=== PATIENT | male | born 1955 | race Caucasian/White ===

== ENCOUNTER 2016-02-10 19:09 | Inpatient (IN) ==
--- NOTE | 2016-02-10 20:48 | ED.PDOC ---
General ED Provider: Dr. EMY STEPHENS Chief Complaint: Diabetes Stated Complaint: My sugars are high lately, went to my doctor she started me on Insulin pen, they are still high, now hurting in the belly Time Seen by Physician: 20:47 Mode of Arrival: Walk-In Information Source: Patient Primary Care Provider: JAN BHAKTA Nursing and Triage Documentation Reviewed and Agree: Yes Endocrine Complaint Exam - Diabetic Complication Complaint/Exam Symptoms Are: Still present Timing: Constant Initial Severity: Moderate Current Severity: Moderate Character: Alert Aggravating: Reports: Medication change, Recent illness, Change in activity level Alleviating: Reports: None Associated Signs and Symptoms: Reports: Polydipsia, Polyuria, Abdominal pain. Denies: Decreased LOC, Polyphagia, Weight loss, Nausea, Vomiting, Fever, Diaphoresis, Fruity breath Cardiac Risk Factors: Reports: DM, Hypertension, Elevated lipids CVA Risk Factors: Reports: DM, Hypertension Serious Bacterial Infection Risk Factors: Reports: None Related Surgical History: Reports: None Acetone on Breath: No Dry Mucous Membranes: Yes Kussmaul Respirations: No Meningeal Signs: No Focal Weakness: None Focal Sensory Loss: None Gait: Normal Nystagmus Present: No Gag Reflex Present: Yes Finger to Nose: Normal Romberg Test Positive: No Babinski Sign: Negative Right, Negative Left Heel to Toe Normal: No Differential Diagnoses: Diabetic Ketoacidosis, Hyperosmolar State, Sepsis Review of Systems - Review Of Systems Constitutional: Reports: Malaise, Weakness Eyes: Reports: No symptoms Ears, Nose, Mouth, Throat: Reports: No symptoms Respiratory: Reports: No symptoms Cardiac: Reports: No symptoms GI: Reports: Abdominal pain : Reports: No symptoms Musculoskeletal: Reports: No symptoms Skin: Reports: No symptoms Neurological: Reports: No symptoms Endocrine: Reports: No symptoms Hematologic/Lymphatic: Reports: No symptoms All Other Systems: Reviewed and Negative Past Medical History - Past Medical History Previously Healthy: Yes Endocrine: Reports: DM 2, Hypothyroid, Dyslipidemia Cardiovascular: Reports: Hypertension Respiratory: Reports: None Hematological: Reports: None Gastrointestinal: Reports: GERD Genitourinary: Reports: None Neuro/Psych: Reports: TIA, Anxiety Musculoskeletal: Reports: Arthritis Cancer: Reports: None - Surgical History General Surgical History: Reports: Cholecystectomy, Back Surgery - Family History Family History: Reports: Unknown - Social History Smoking Status: Former smoker Hx Substance Use: No Alcohol Screening: None Physical Exam - Physical Exam Appearance: Ill-appearing, Obese Ill-appearing: Moderate Eyes: Conjunctiva clear ENT: Ears normal, Nose normal, Oropharynx normal Respiratory: Airway patent, Breath sounds clear, Breath sounds equal, Respirations nonlabored Cardiovascular: RRR, Pulses normal, No rub, No murmur GI/: Tender Musculoskeletal: Normal strength, ROM intact, No edema, No calf tenderness Skin: Warm, Dry, Normal color Neurological: Sensation intact, Motor intact, Reflexes intact, Cranial nerves intact, Alert, Oriented Psychiatric: Affect appropriate, Mood appropriate Interpretation - Radiology Interpretation Radiology Interpretation By: Radiologist Radiology Results: Negative Exam Interpreted: CT Scan Critical Care Note - Critical Care Note Total Time (mins): 0 Course - Course Hematology/Chemistry: 02/10/16 20:50 02/10/16 20:50 Orders, Labs, Meds: Lab Review 02/10/16 02/10/16 02/10/16 20:50 21:46 21:50 WBC 8.65 RBC 5.63 Hgb 15.4 Hct 43.9 MCV 78.0 L MCH 27.4 MCHC 35.1 RDW Coeff of Niurka 12.5 Plt Count 238 Immature Gran % (Auto) 0.2 Neut % (Auto) 72.1 Lymph % (Auto) 17.7 Hemphill % (Auto) 7.3 Eos % (Auto) 2.0 Baso % (Auto) 0.7 Immature Gran # (Auto) 0.0 Neut # 6.2 Lymph # 1.5 Hemphill # 0.6 Eos # 0.2 Baso # 0.1 D-Dimer 0.62 Puncture Site Lb O2 Saturation 89.0 L ABG pH 7.436 ABG pCO2 44.4 ABG pO2 55.0 L* ABG HCO3 29.9 H ABG Total CO2 31 H ABG Base Excess 6 H Evan Test + FiO2 % 21.0 Sodium 128 L Potassium 3.5 Chloride 86 L Carbon Dioxide 29 Anion Gap 16.5 BUN 25 H Creatinine 2.01 H Estimated GFR (MDRD) 34.00 BUN/Creatinine Ratio 12.43 Glucose 776 H* Calcium 9.3 Total Bilirubin 0.75 AST 23 ALT 49 Alkaline Phosphatase 160 H Total Creatine Kinase 52 Troponin I < 0.0100 Total Protein 7.5 Albumin 4.0 Globulin 3.5 Albumin/Globulin Ratio 1.14 Urine Color Urine Clarity Urine pH Ur Specific [place] Urine Protein Urine Glucose (UA) Urine Ketones Urine Blood Urine Nitrite Urine Bilirubin Urine Urobilinogen Ur Leukocyte Esterase Acetone, Qual Small 02/10/16 23:21 WBC RBC Hgb Hct MCV MCH MCHC RDW Coeff of Niurka Plt Count Immature Gran % (Auto) Neut % (Auto) Lymph % (Auto) Hemphill % (Auto) Eos % (Auto) Baso % (Auto) Immature Gran # (Auto) Neut # Lymph # Hemphill # Eos # Baso # D-Dimer Puncture Site O2 Saturation ABG pH ABG pCO2 ABG pO2 ABG HCO3 ABG Total CO2 ABG Base Excess Evan Test FiO2 % Sodium Potassium Chloride Carbon Dioxide Anion Gap BUN Creatinine Estimated GFR (MDRD) BUN/Creatinine Ratio Glucose Calcium Total Bilirubin AST ALT Alkaline Phosphatase Total Creatine Kinase Troponin I Total Protein Albumin Globulin Albumin/Globulin Ratio Urine Color Yellow Urine Clarity Clear Urine pH 5.5 Ur Specific [place] <=1.005 Urine Protein Negative Urine Glucose (UA) 2+ Urine Ketones 1+ Urine Blood Negative Urine Nitrite Negative Urine Bilirubin Negative Urine Urobilinogen 0.2 Ur Leukocyte Esterase Negative Acetone, Qual Orders Category Date Time Status ABG DRAW REQUEST Stat CARDIO 02/10/16 21:47 Completed EKG-(ED ONLY) Stat CARDIO 02/10/16 20:50 Completed BLOOD GLUCOSE MONITORING Q1HR CARE 02/10/16 21:48 Active ED IV/MEDIPORT/POWERPORT .ONCE EMERGENCY 02/10/16 21:46 Active Glucose [ED ACCUCHECK ASSESSMENT] .ONCE EMERGENCY 02/10/16 20:44 Active ABG Stat LAB 02/10/16 21:46 Completed ACETONE, QUALITATIVE Stat LAB 02/10/16 21:50 Completed CBC W/ AUTO DIFF Stat LAB 02/10/16 20:50 Completed COMPREHENSIVE METABOLIC PANEL Stat LAB 02/10/16 20:50 Completed CREATINE KINASE Stat LAB 02/10/16 20:50 Completed D-DIMER Stat LAB 02/10/16 20:50 Completed TROPONIN I Stat LAB 02/10/16 20:50 Completed URINALYSIS C & S IF INDICATED Stat LAB 02/10/16 23:21 Completed 0.9 % Sodium Chloride [Saline Flush] MEDS 02/10/16 21:46 Ordered 1 syr IVF PRN PRN Insulin Regular, Human [Humulin R] MEDS 02/10/16 21:48 Discontinued 15 unit IVP ONCE STA Sodium Chloride 0.9% [Sodium Chloride] 500 ml MEDS 02/10/16 21:46 Active IV 100 mls/hr CT ABDOMEN/PELVIS WO CONTRAST Stat RADS 02/10/16 20:43 Completed CXR [CHEST, 1V AP ONLY] Stat RADS 02/10/16 22:21 Taken Medications Generic Name Dose Route Start Last Admin Trade Name Freq PRN Reason Stop Dose Admin Sodium Chloride 500 mls @ 100 mls/hr 02/10/16 21:46 02/10/16 22:22 Sodium Chloride IV 02/11/16 02:45 100 mls/hr .Q5H STA Administration Sodium Chloride 1 syr 02/10/16 21:46 Saline Flush IVF PRN PRN To flush IV Discontinued Medications Generic Name Dose Route Start Last Admin Trade Name Freq PRN Reason Stop Dose Admin Insulin Human Regular 15 unit 02/10/16 21:48 02/10/16 22:17 Humulin R IVP 02/10/16 21:49 15 unit ONCE STA Administration Vital Signs: Temp Pulse Resp BP Pulse Ox 02/10/16 19:09 98.5 F 90 20 133/87 94 L Departure - Departure Time of Disposition: 23:55 Disposition: ADMITTED INPATIENT Discharge Problem: Diabetic ketoacidosis Qualifiers: Diabetes mellitus type: type 2 Diabetes mellitus complication detail: without coma Qualifier Code: (E13.10) Other specified diabetes mellitus with ketoacidosis without coma Instructions: Hyperglycemia, Non-Diabetic (ED) Condition: Stable Pt referred to PMD for follow-up: Yes Allergies/Adverse Reactions: Allergies rofecoxib [From Vioxx] Adverse Reaction (Verified 02/10/16 19:14) Home Medications: Ambulatory Orders Alprazolam [Alprazolam] 1 mg PO DAILY 01/24/15 Hydrochlorothiazide 25 mg PO DAILY 01/24/15 Levothyroxine Sodium [Synthroid] 50 mcg PO QDAC 01/24/15 Metoprolol Tartrate [Metoprolol Tartrate] 50 mg PO DAILY 01/24/15 Morphine Sulfate 30 mg PO BID 01/24/15 Sitagliptin Phosphate [Januvia] 100 mg PO DAILY 01/24/15 Disposition Discussed With: Patient, Family
[2016-02-10 20:59] LABS: BASOPHILS # (AUTO) 0.1 K/uL (0-0.2); BASOPHILS % (AUTO) 0.7 % (0.0-3.0); EOSINOPHILS # (AUTO) 0.2 K/ul (0.0-0.7); HEMATOCRIT 43.9 % (42.0-52.0); HEMOGLOBIN 15.4 g/dl (14.0-18.0); IMMATURE GRANULOCYTE % (AUTO) 0.2 % (0.0-5.0); LYMPHOCYTES # (AUTO) 1.5 K/uL (0.60-3.4); LYMPHOCYTES % (AUTO) 17.7 (10.0-50.0); MEAN CORPUSCULAR HEMOGLOBIN 27.4 pg (27.0-31.0); MEAN CORPUSCULAR HGB CONC 35.1 (31.8-35.4); MONOCYTES # (AUTO) 0.6 K/uL (0.4-2.0); MONOCYTES % (AUTO) 7.3 (0-10); NEUTROPHILS # (AUTO) 6.2 K/ul (2.0-6.9); NEUTROPHILS % (AUTO) 72.1; PLATELET COUNT 238 10^3/uL (140-440); RED BLOOD COUNT 5.63 10^6/ul (4.70-6.10); WHITE BLOOD COUNT 8.65 K/ul (4.2-10.2)
[2016-02-10 21:26] LABS: ALANINE AMINOTRANSFERASE 49 U/L (12-78); ALBUMIN/GLOBULIN RATIO 1.14; ALKALINE PHOSPHATASE 160 U/L (50-136); ANION GAP 16.5; ASPARTATE AMINO TRANSFERASE 23 U/L (15-37); BILIRUBIN,TOTAL 0.75 mg/dL (0.00-1.20); BLOOD UREA NITROGEN 25 mg/dL (7-18); BUN/CREATININE RATIO 12.43; CALCIUM 9.3 mg/dL (8.2-10.2); CARBON DIOXIDE 29 mmol/L (21-32); CHLORIDE 86 mmol/L (98-107); CREATINE KINASE 52 U/L; CREATININE 2.01 mg/dL (0.60-1.10); POTASSIUM 3.5 mmol/L (3.5-5.1); SODIUM 128 mmol/L (136-145); TOTAL PROTEIN 7.5 g/dL (6.4-8.2)
[2016-02-10] MEDS ORDERED: SODIUM CHLORIDE 500 ML IV STA (21:46)
[2016-02-10] MEDS ORDERED: HUMULIN R IVP STA (21:48)
[2016-02-10 21:55] LABS: GLUCOSE 776 mg/dL (70-100)
[2016-02-10 22:10] LABS: ABG PCO2 44.4 mmHg (35-45); ABG PH 7.436 (7.35-7.45)
[2016-02-10 22:11] LABS: ABG BASE EXCESS 6 (-2.0-2.0); ABG HCO3 29.9 (22.0-26.0); ABG TCO2 31 (22.0-28.0)
--- NOTE | 2016-02-10 22:20 | CT ---
EXAM: CT abdomen pelvis without intravenous contrast 02/10/2016. Sagittal and coronal reformatted images obtained. HISTORY: Abdominal pain COMPARISON: 01/24/2015 FINDINGS: The liver shows no acute abnormality. Gallbladder has been removed. The adrenal glands and kidneys show no acute abnormality. The spleen and pancreas show no acute abnormality. There is no bowel obstruction. Unremarkable urinary bladder. No free air or free fluid. Normal appendix. Posterior fusion of L4-S1. No acute osseous abnormality. Chronic osteoarthritic degenerative tracy e of the left hip. IMPRESSION: 1. Status post cholecystectomy. 2. No urinary or bowel obstruction and normal appendix. 3. No acute inflammatory process identified within the abdomen or pelvis within the limitation of a noncontrast enhanced examination.
[2016-02-10 23:30] LABS: BILIRUBIN,URINE Negative (NEGATIVE); KETONES,URINE 1+ (NEGATIVE); LEUKOCYTE ESTERASE ,URINE Negative (NEGATIVE); NITRITE,URINE Negative (NEGATIVE); PH,URINE 5.5 (5-9); PROTEIN,URINE Negative (NEGATIVE); URINE, BLOOD Negative (NEGATIVE)
[2016-02-10 23:32] LABS: ADD URINE MICROSCOPIC NO
[2016-02-10] MEDS ORDERED: SODIUM CHLORIDE 1,000 ML IV SCH (23:45)
[2016-02-10] MEDS ORDERED: TYLENOL PO PRN (23:56)
[2016-02-11] MEDS ORDERED: HUMULIN R 100 UNIT in SODIUM CHLORIDE 100 ML IV SCH (00:15)
[2016-02-11] MEDS ORDERED: HUMULIN R ONE ×2 (01:48→10:26)
[2016-02-11] MEDS ORDERED: SODIUM CHLORIDE 100 ML IV ONE (02:00)
[2016-02-11 02:53] VITALS: BMI 31.7
[2016-02-11] MEDS: SYNTHROID PO SCH (05:50)
[2016-02-11 06:11] LABS: BASOPHILS # (AUTO) 0.1 K/uL (0-0.2); BASOPHILS % (AUTO) 0.8 % (0.0-3.0); EOSINOPHILS # (AUTO) 0.4 K/ul (0.0-0.7); EOSINOPHILS % (AUTO) 3.6 % (0.0-7.0); HEMATOCRIT 47.2 % (42.0-52.0); HEMOGLOBIN 16.4 g/dl (14.0-18.0); IMMATURE GRANULOCYTE % (AUTO) 0.3 % (0.0-5.0); LYMPHOCYTES # (AUTO) 2.5 K/uL (0.60-3.4); LYMPHOCYTES % (AUTO) 24.9 (10.0-50.0); MEAN CORPUSCULAR HEMOGLOBIN 27.2 pg (27.0-31.0); MEAN CORPUSCULAR HGB CONC 34.7 (31.8-35.4); MEAN CORPUSCULAR VOLUME 78.4 fl (80.0-94.0); MONOCYTES # (AUTO) 0.8 K/uL (0.4-2.0); MONOCYTES % (AUTO) 8.4 (0-10); NEUTROPHILS # (AUTO) 6.1 K/ul (2.0-6.9); PLATELET COUNT 263 10^3/uL (140-440); RED BLOOD COUNT 6.02 10^6/ul (4.70-6.10); WHITE BLOOD COUNT 9.91 K/ul (4.2-10.2)
[2016-02-11 06:58] LABS: ALANINE AMINOTRANSFERASE 47 U/L (12-78); ALBUMIN/GLOBULIN RATIO 1.05; ALKALINE PHOSPHATASE 135 U/L (50-136); ANION GAP 11.6; ASPARTATE AMINO TRANSFERASE 26 U/L (15-37); BILIRUBIN,TOTAL 0.52 mg/dL (0.00-1.20); BLOOD UREA NITROGEN 22 mg/dL (7-18); BUN/CREATININE RATIO 13.66; CALCIUM 9.9 mg/dL (8.2-10.2); CARBON DIOXIDE 36 mmol/L (21-32); CHLORIDE 92 mmol/L (98-107); CREATINE KINASE 58 U/L; CREATININE 1.61 mg/dL (0.60-1.10); GLUCOSE 246 mg/dL (70-100); SODIUM 137 mmol/L (136-145); TOTAL PROTEIN 7.8 g/dL (6.4-8.2)
[2016-02-11 07:07] LABS: POTASSIUM 2.6 mmol/L (3.5-5.1)
--- NOTE | 2016-02-11 07:35 | DI ---
EXAM: Chest one view, frontal view only. HISTORY: Cough. COMPARISON: 03/27/2012. FINDINGS: The heart size is normal. There is no pulmonary vascular congestion. The lungs are jose r save for calcified granulomatous changes. No pleural effusion or pneumothorax is seen. No acute osseous abnormality identified. Thoracic spinal cord stimulator noted. Suspect old left humeral fr acture. Since the prior study, there has been no significant interval change. IMPRESSION: No acute cardiopulmonary process.
[2016-02-11] MEDS ORDERED: K-DUR PO STA (08:13)
[2016-02-11] MEDS: MORPHINE SULFATE TAB PO SCH ×2 (08:26→21:56)
[2016-02-11] MEDS: LOPRESSOR PO SCH (08:26)
[2016-02-11] MEDS: LOVENOX SUBCUT SCH (08:26)
[2016-02-11] MEDS ORDERED: D5%-NS-KCL 20 MEQ/L IV SOL 1,000 ML IV SCH (08:30)
[2016-02-11] MEDS ORDERED: NON-FORMULARY MEDICATION (Alprazolam [Alprazolam] 1 MG) PO SCH ×22 (09:00)
[2016-02-11] MEDS ORDERED: MORPHINE SULFATE 30 MG PO SCH (09:00)
[2016-02-11 10:43] LABS: ABG PCO2 44.8 mmHg (35-45)
[2016-02-11 10:45] LABS: ABG BASE EXCESS 5 (-2.0-2.0); ABG HCO3 29.7 (22.0-26.0); ABG TCO2 31 (22.0-28.0)
[2016-02-11] MEDS: POTASSIUM CHLORIDE 20 MEQ VIAL-ADDITIVE ONLY 20 MEQ in SODIUM CHLORIDE 1,000 ML IV SCH ×2 (11:07→21:07)
[2016-02-11] MEDS: JANUVIA PO SCH (11:08)
[2016-02-11] MEDS: HUMULIN R SUBCUT PRN ×7 (12:22→22:14)
[2016-02-11] MEDS: XANAX PO SCH (13:07)
[2016-02-11 14:37] LABS: TROPONIN I 0.014 ng/ml (0.0000-0.4000)
[2016-02-12 05:50] LABS: BASOPHILS # (AUTO) 0.1 K/uL (0-0.2); EOSINOPHILS # (AUTO) 0.3 K/ul (0.0-0.7); EOSINOPHILS % (AUTO) 4.8 % (0.0-7.0); HEMATOCRIT 41.1 % (42.0-52.0); HEMOGLOBIN 13.9 g/dl (14.0-18.0); IMMATURE GRANULOCYTE % (AUTO) 0.3 % (0.0-5.0); LYMPHOCYTES # (AUTO) 1.7 K/uL (0.60-3.4); LYMPHOCYTES % (AUTO) 27.4 (10.0-50.0); MEAN CORPUSCULAR HGB CONC 33.8 (31.8-35.4); MONOCYTES # (AUTO) 0.6 K/uL (0.4-2.0); NEUTROPHILS # (AUTO) 3.4 K/ul (2.0-6.9); NEUTROPHILS % (AUTO) 56.5; PLATELET COUNT 180 10^3/uL (140-440); RED BLOOD COUNT 5.14 10^6/ul (4.70-6.10); WHITE BLOOD COUNT 6.03 K/ul (4.2-10.2)
[2016-02-12] MEDS: SYNTHROID PO SCH (06:10)
[2016-02-12 06:14] LABS: ALBUMIN 3.2 g/dL (3.4-5.0); ALBUMIN/GLOBULIN RATIO 1.07; ANION GAP 11.3; BILIRUBIN,TOTAL 0.6 mg/dL (0.00-1.20); BUN/CREATININE RATIO 12.97; CALCIUM 8.6 mg/dL (8.2-10.2); CREATININE 1.31 mg/dL (0.60-1.10); POTASSIUM 3.3 mmol/L (3.5-5.1); TOTAL PROTEIN 6.2 g/dL (6.4-8.2)
[2016-02-12] MEDS ORDERED: POTASSIUM CHLORIDE 20 MEQ VIAL-ADDITIVE ONLY IV ONE ×2 (06:50→17:02)
[2016-02-12] MEDS: JANUVIA PO SCH (08:46)
[2016-02-12] MEDS: LOPRESSOR PO SCH (08:46)
[2016-02-12] MEDS: XANAX PO SCH (08:46)
[2016-02-12] MEDS: MORPHINE SULFATE TAB PO SCH ×2 (08:46→20:13)
[2016-02-12] MEDS: LOVENOX SUBCUT SCH (08:47)
[2016-02-12] MEDS: HUMULIN R SUBCUT PRN ×3 (11:41→20:23)
[2016-02-12] MEDS ORDERED: MIRALAX PO STA (13:56)
[2016-02-12] MEDS: POTASSIUM CHLORIDE 20 MEQ VIAL-ADDITIVE ONLY 20 MEQ in SODIUM CHLORIDE 1,000 ML IV SCH (17:06)
[2016-02-13] MEDS ORDERED: POTASSIUM CHLORIDE 20 MEQ VIAL-ADDITIVE ONLY IV ONE ×3 (03:32→23:09)
[2016-02-13] MEDS: POTASSIUM CHLORIDE 20 MEQ VIAL-ADDITIVE ONLY 20 MEQ in SODIUM CHLORIDE 1,000 ML IV SCH ×4 (03:45→23:17)
[2016-02-13] MEDS: SYNTHROID PO SCH (05:51)
[2016-02-13 06:38] LABS: BASOPHILS # (AUTO) 0.1 K/uL (0-0.2); BASOPHILS % (AUTO) 0.6 % (0.0-3.0); EOSINOPHILS # (AUTO) 0.3 K/ul (0.0-0.7); EOSINOPHILS % (AUTO) 3.1 % (0.0-7.0); HEMATOCRIT 40.5 % (42.0-52.0); HEMOGLOBIN 13.4 g/dl (14.0-18.0); IMMATURE GRANULOCYTE % (AUTO) 0.4 % (0.0-5.0); LYMPHOCYTES % (AUTO) 11.8 (10.0-50.0); MEAN CORPUSCULAR HEMOGLOBIN 26.7 pg (27.0-31.0); MEAN CORPUSCULAR HGB CONC 33.1 (31.8-35.4); MEAN CORPUSCULAR VOLUME 80.8 fl (80.0-94.0); MONOCYTES # (AUTO) 0.7 K/uL (0.4-2.0); NEUTROPHILS # (AUTO) 6.5 K/ul (2.0-6.9); NEUTROPHILS % (AUTO) 76.1; PLATELET COUNT 166 10^3/uL (140-440); RED BLOOD COUNT 5.01 10^6/ul (4.70-6.10); WHITE BLOOD COUNT 8.48 K/ul (4.2-10.2)
[2016-02-13] MEDS: HUMULIN R SUBCUT PRN ×4 (06:41→20:51)
[2016-02-13 07:00] LABS: ALBUMIN 3.2 g/dL (3.4-5.0); ALBUMIN/GLOBULIN RATIO 1.07; ANION GAP 13.7; BILIRUBIN,TOTAL 0.55 mg/dL (0.00-1.20); BUN/CREATININE RATIO 13.27; CALCIUM 8.5 mg/dL (8.2-10.2); CREATININE 1.13 mg/dL (0.60-1.10); POTASSIUM 3.7 mmol/L (3.5-5.1); TOTAL PROTEIN 6.2 g/dL (6.4-8.2)
[2016-02-13] MEDS: LOPRESSOR PO SCH (08:36)
[2016-02-13] MEDS: MORPHINE SULFATE TAB PO SCH ×2 (08:36→20:35)
[2016-02-13] MEDS: JANUVIA PO SCH (08:36)
[2016-02-13] MEDS: XANAX PO SCH (08:36)
[2016-02-13] MEDS: LOVENOX SUBCUT SCH (08:37)
[2016-02-13] MEDS ORDERED: MIRALAX PO STA (17:25)
--- NOTE | 2016-02-13 19:25 | CT ---
EXAM: Noncontrast CT of the chest HISTORY: Hypoxemia COMPARISON: 02/10/2016 chest x-ray TECHNIQUE: Noncontrast CT of the chest FINDINGS: A right upper lobe partially calcified area of mass-like consolidation is seen measuring 4.5 x 2.1 c m with spiculated margins. A few left upper lobe mass-like areas consolidation are seen which are p artially calcified with the largest measuring 1.5 x 1.8 cm. These are measured on coronal images. There are areas of probable atelectasis or scarring within both lung apices. There is mild bilatera l lower lobe atelectasis. No definite focal infiltrate is seen. A few calcified granulomas are pre sent. No pneumothorax or pleural effusion is identified. Heart size is normal. The ascending aorta measures 4.1 x 4.2 cm. Numerous calcified mediastinal ly mph nodes are present. Mild atherosclerotic calcifications are present. The gallbladder has been removed. A spinal stimulator wires seen. There are mild degenerative garcia ges of the thoracic spine. IMPRESSION: Biapical spiculated mass-like densities. The appearance is suggestive of pneumoconiosis or sarcoido sis. Comparison with prior CT is recommended to confirm stability, as malignancy cannot be excluded . If no prior exam is available, PET-CT is recommended. Numerous calcified mediastinal lymph nodes which can be seen with prior granulomatous infection or p neumoconiosis. Scattered areas of mild atelectasis. No definite focal infiltrate. Mild atherosclerosis. Ascending aortic dilation measuring 4.1 x 4.2 cm.
[2016-02-14 04:47] LABS: BASOPHILS % (AUTO) 0.4 % (0.0-3.0); EOSINOPHILS # (AUTO) 0.1 K/ul (0.0-0.7); EOSINOPHILS % (AUTO) 1.2 % (0.0-7.0); HEMATOCRIT 37.2 % (42.0-52.0); HEMOGLOBIN 12.2 g/dl (14.0-18.0); IMMATURE GRANULOCYTE % (AUTO) 0.7 % (0.0-5.0); LYMPHOCYTES % (AUTO) 9.4 (10.0-50.0); MEAN CORPUSCULAR HEMOGLOBIN 26.8 pg (27.0-31.0); MEAN CORPUSCULAR HGB CONC 32.8 (31.8-35.4); MEAN CORPUSCULAR VOLUME 81.8 fl (80.0-94.0); MONOCYTES % (AUTO) 9.9 (0-10); NEUTROPHILS # (AUTO) 8.1 K/ul (2.0-6.9); NEUTROPHILS % (AUTO) 78.4; PLATELET COUNT 134 10^3/uL (140-440); RED BLOOD COUNT 4.55 10^6/ul (4.70-6.10); WHITE BLOOD COUNT 10.27 K/ul (4.2-10.2)
[2016-02-14 05:05] LABS: ALBUMIN 2.9 g/dL (3.4-5.0); ALBUMIN/GLOBULIN RATIO 0.97; BILIRUBIN,TOTAL 0.54 mg/dL (0.00-1.20); BUN/CREATININE RATIO 10.37; CALCIUM 8.5 mg/dL (8.2-10.2); CREATININE 1.06 mg/dL (0.60-1.10); TOTAL PROTEIN 5.9 g/dL (6.4-8.2)
[2016-02-14] MEDS: SYNTHROID PO SCH (05:42)
[2016-02-14] MEDS: HUMULIN R SUBCUT PRN ×4 (05:52→22:04)
[2016-02-14] MEDS: LOVENOX SUBCUT SCH (09:31)
[2016-02-14] MEDS: JANUVIA PO SCH (09:32)
[2016-02-14] MEDS: LOPRESSOR PO SCH (09:32)
[2016-02-14] MEDS: XANAX PO SCH (09:32)
[2016-02-14] MEDS: MORPHINE SULFATE TAB PO SCH ×2 (09:32→22:02)
[2016-02-14] MEDS: POTASSIUM CHLORIDE 20 MEQ VIAL-ADDITIVE ONLY 20 MEQ in SODIUM CHLORIDE 1,000 ML IV SCH ×2 (10:05→20:14)
[2016-02-14] MEDS ORDERED: TUBERSOL 10 TESTS ID STA (11:00)
[2016-02-14 11:27] LABS: CHOL/HDL RATIO 6.2 (4.5-6.4)
[2016-02-14 11:36] LABS: ABG BASE EXCESS -3 (-2.0-2.0); ABG HCO3 22.6 (22.0-26.0); ABG PCO2 38.9 mmHg (35-45); ABG PH 7.373 (7.35-7.45); ABG TCO2 24 (22.0-28.0)
[2016-02-14] MEDS: HYZAAR 50-12.5 MG TAB PO SCH (11:54)
[2016-02-14 12:15] LABS: ERYTHROCYTE SEDIMENTATION RATE 28 mm/hr (0-15); ESR INTERNAL QC INTERNAL QC VALID
--- NOTE | 2016-02-14 14:11 | CT ---
EXAM: CT Head HISTORY: Sarcoidosis COMPARISON: None TECHNIQUE: CT head performed without contrast FINDINGS: There is no mass effect, midline shift, or intracranial hemmorhage. Mixon white different iation is preserved. There is no extra-axial collection. The ventricles, sulci, and basal cisterns are patent and symmetric. There is chronic ischemic disease of the white matter and cerebral volum e loss. There is no depressed calvarial fracture. The mastoid air cells are clear. The visualized paranasal sinuses are clear. There are intracranial atherosclerotic calcifications. IMPRESSION: 1. No acute intracranial abnormality. 2. Chronic ischemic disease of the white matter and cerebral volume loss.
[2016-02-14] MEDS ORDERED: POTASSIUM CHLORIDE 20 MEQ VIAL-ADDITIVE ONLY IV ONE (20:12)
[2016-02-14] MEDS ORDERED: LANTUS SUBCUT SCH (21:00)
[2016-02-15 04:51] LABS: BASOPHILS % (AUTO) 0.5 % (0.0-3.0); EOSINOPHILS # (AUTO) 0.2 K/ul (0.0-0.7); EOSINOPHILS % (AUTO) 2.8 % (0.0-7.0); HEMATOCRIT 36.7 % (42.0-52.0); HEMOGLOBIN 11.8 g/dl (14.0-18.0); IMMATURE GRANULOCYTE % (AUTO) 0.5 % (0.0-5.0); LYMPHOCYTES # (AUTO) 1.3 K/uL (0.60-3.4); LYMPHOCYTES % (AUTO) 16.5 (10.0-50.0); MEAN CORPUSCULAR HEMOGLOBIN 26.9 pg (27.0-31.0); MEAN CORPUSCULAR HGB CONC 32.2 (31.8-35.4); MEAN CORPUSCULAR VOLUME 83.6 fl (80.0-94.0); MONOCYTES # (AUTO) 0.9 K/uL (0.4-2.0); NEUTROPHILS # (AUTO) 5.5 K/ul (2.0-6.9); NEUTROPHILS % (AUTO) 68.7; PLATELET COUNT 135 10^3/uL (140-440); RED BLOOD COUNT 4.39 10^6/ul (4.70-6.10); WHITE BLOOD COUNT 7.94 K/ul (4.2-10.2)
[2016-02-15 05:07] LABS: ALBUMIN 2.6 g/dL (3.4-5.0); ALBUMIN/GLOBULIN RATIO 0.84; ANION GAP 9.7; BILIRUBIN,TOTAL 0.36 mg/dL (0.00-1.20); BUN/CREATININE RATIO 9.8; CALCIUM 8.3 mg/dL (8.2-10.2); CREATININE 1.02 mg/dL (0.60-1.10); POTASSIUM 3.7 mmol/L (3.5-5.1); TOTAL PROTEIN 5.7 g/dL (6.4-8.2)
[2016-02-15] MEDS: SYNTHROID PO SCH (05:43)
[2016-02-15] MEDS: HUMULIN R SUBCUT PRN ×4 (06:01→21:39)
[2016-02-15] MEDS: POTASSIUM CHLORIDE 20 MEQ VIAL-ADDITIVE ONLY 20 MEQ in SODIUM CHLORIDE 1,000 ML IV SCH (07:38)
[2016-02-15] MEDS: HYZAAR 50-12.5 MG TAB PO SCH (08:34)
[2016-02-15] MEDS: MORPHINE SULFATE TAB PO SCH ×2 (08:34→21:37)
[2016-02-15] MEDS: XANAX PO SCH (08:34)
[2016-02-15] MEDS: JANUVIA PO SCH (08:35)
[2016-02-15] MEDS: LOVENOX SUBCUT SCH (08:35)
[2016-02-15] MEDS: LOPRESSOR PO SCH (08:35)
[2016-02-15 08:55] LABS: INSULIN 134.5 uIU/mL (2.6-24.9)
--- NOTE | 2016-02-15 10:10 | HP ---
CHIEF COMPLAINT: "My sugar is high." HISTORY OF PRESENT ILLNESS: The patient presented to this emergency room, walking in. He claimed that he did run out of test strips and tested his blood sugar last night and the meter read high without numbers. He felt like his mouth is dry. He claimed to be tired easily. The patient was evaluated in the emergency room and the blood sugar was 776. Arterial blood gases showed moderate to severe hypoxemia. Chest x-ray had no acute cardiopulmonary processes. Emergency room physician contacted me with this problem and did advise me that the patient's blood sugar was high and he would like to admit him as an early DKA. PAST PERSONAL HISTORY: The patient has hypertension on medication, diabetes mellitus on medication and was diagnosed about a year ago. Dyslipidemia, GERD, anxiety, history of TIA, history of arthritis and history of thyroid problems. The patient had previous cholecystectomy, as well as lumbar surgery. This patient is being managed with Morphine from the provider. FAMILY HISTORY: Unknown. SOCIAL HISTORY: The patient is and he stopped smoking some time ago. He is unemployed and on disability. His provider is Jennifer Dumnot. MEDICATIONS: Prior to this admission. Metoprolol Tartrate 50 mg daily Alprazolam 1 mg daily Morphine 30 mg twice a day Januvia 100 mg daily Hydrochlorothiazide 25 mg daily Levothyroxine 50 mcg daily Lantus 20 units subcutaneously twice daily Jardiance 25 mg daily ALLERGIES: Rofecoxib (Vyox) REVIEW OF SYSTEMS: CONSTITUTIONAL: The patient is alert without any fever or chills with some weakness. SENIOR HYDROGEOLOGIST: He is alert and responsive and had movement of all extremities and no headaches or any seizure disorders. VISUAL: Denies any double vision or blurred vision. AUDITORY: The patient's hearing is adequate. He denies any ringing of the ears. No drainage or pain. RESPIRATORY: No significant history of cough or hemoptysis. CARDIOVASCULAR: Denies any chest pain or mandibular pain or neck pain. GASTROINTESTINAL: Appetite seemed to be adequate and consumes most of his meals. No nausea or diarrhea, but does have some abdominal discomfort. GENITOURINARY: The patient does have some frequency of urination, but no pain. MUSCULOSKELETAL: The patient has chronic lumbar pain and is taking Morphine from his provider. ENDOCRINE: The patient has a markedly elevated blood sugar of 776. He does have some dryness of the mouth, probably secondary to the hyperglycemia. HEMATOLOGIC: No history of prolonged bleeding. PSYCHIATRIC: Affect is slightly flat. PHYSICAL EXAMINATION: GENERAL: 60 year old male admitted to the hospital because of hyperglycemia and moderate hypoxemia. The patient is a known diabetic and is managed with Insulin, plus Januvia and Jardiance. VITAL SIGNS: Temperature 98.5, pulse 90, blood pressure 133/87, respiratory rate 20, oxygen saturation 94 at room air. HEAD: Unremarkable. FACE: Symmetrical and equal with no facial weakness and no tenderness in the frontal or maxillary sinus areas to palpation under pressure. EYES: Pupils equal/reactive to light about 3 mm in size. Conjunctivae not pale. Sclerae not icteric. MOUTH: Unremarkable. THROAT: No inflammation, tumors or exudate. NECK: No adenopathies. No adenitis. No masses. No bruit. No tenderness. No rigidity. CHEST: Essentially symmetrical and equal. LUNGS: Breath sounds are heard in both sides, diminished with a few coarse rales. No wheezing. HEART: Audible and regular with good tones. No murmurs. ABDOMEN: Protuberant, soft with some tenderness, but not localized. No muscular guarding. Bowel sounds are active. EXTERNAL GENITALIA: Not examined. RECTAL: Not performed. LOWER EXTREMITIES: Essentially symmetrical and equal. Posterior tibials present. UPPER EXTREMITIES: Symmetrical and equal. ASSESSMENT: 1. DIABETES MELLITUS, UNCONTROLLED. BLOOD SUGAR OF 776. 2. MODERATE HYPOXEMIA, ETIOLOGY UNDETERMINED. 3. HISTORY OF HYPERTENSION, CONTROLLED 4. HISTORY OF CHRONIC LUMBAR PAIN ON MORPHINE SULFATE 30 MG TWICE A DAY 5. HISTORY OF HYPOTHYROIDISM REPLACED WITH 50 MCG OF LEVOTHYROXINE DAILY 6. ELEVATED BMI 7. PERIPHERAL ARTERIAL DISEASE 8. HISTORY OF TIA, NOT VERY MUCH INFORMATION. THE PATIENT IS UNABLE TO PROVIDE. PROGNOSIS: Guarded. MTDD
--- NOTE | 2016-02-15 10:23 | PN ---
DATE OF VISIT: 02/11/16 The patient is alert, responsive and oriented, but has poor recollection of events. He denies any headaches or visual disturbances. No chest pain. VITAL SIGNS: Temperature 98, pulse 98, blood pressure 132/82 at 6 p.m. on 02/10. Respiratory rate 18, oxygen saturation 95 at room air. LABS: Repeat arterial blood gases showed a PO2 of 55, the same as yesterday. Oxygen saturation 89, FIO2 21. Bicarbonate 29.7, 29.9 yesterday. Total CO2 31 and 31 yesterday. Base excess +5, +6 yesterday. PCO2 44.8, 44.4 yesterday. pH is 7.430 and yesterday was 7.436. NECK: No masses, no bruit. LUNGS: Still has some coarse breath sounds with coarse rales, but no wheezing. HEART: Normal sinus rhythm. ABDOMEN: Some tenderness, but with active bowel sounds. LABS: Repeat arterial blood gases showed a PO2 of 55, the same as yesterday. Oxygen saturation 89, FIO2 21. Bicarbonate 29.7, 29.9 yesterday. Total CO2 31 and 31 yesterday. Base excess +5, +6 yesterday. PCO2 44.8, 44.4 yesterday. pH is 7.430 and yesterday was 7.436. CT scan of the abdomen and pelvis without contrast showed post cholecystectomy. No urinary or bowel obstruction findings and no acute inflammatory processes identified. Chest x-ray showed no acute cardiopulmonary process on the day of admission from the emergency room. The patient's appetite appeared to be good. He did eat 100% of the meal. He had some urinary frequency. CONDITION: Stable at this time. [facility]
--- NOTE | 2016-02-15 10:40 | PN ---
DATE OF VISIT: 02/12/[address] was ordered on account of the persistent hypoxemia with a normal or unremarkable chest x-ray. His hemoglobin and hematocrit has decreased and probably due to hydration. Platelet count remained normal at 180,000. Potassium is now 3.3 from 2.6 yesterday. CO2 is 28 and was 36 yesterday. E GFR is better at 56 from 34 on admission and 44 on the second hospital day. Blood sugar 252 fasting. AST slightly elevated at 59. Alkaline phosphatase was elevated initially and now back down to normal at 91. Total protein and Albumin is below normal. Again, probably function of hydration. It was 7.5 and 12.0 on admission. The patient claimed to be feeling some better. No results of the CT scan of the chest at this time. VITAL SIGNS: The patient's vital signs at 10 a.m. on 02/12/16 had a temperature of 97.4, pulse 79, blood pressure 159/93, respiratory rate 18, oxygen saturation 92 with 2 liters of nasal oxygen. LUNGS: Still has diminished breath sounds with coarse breath sounds. No wheezing. HEART: Normal sinus rhythm. ABDOMEN: Slightly protuberant, soft with active bowel sounds and no muscular guarding. MTDD
--- NOTE | 2016-02-15 10:54 | PN ---
DATE OF VISIT: 02/13/16 The patient is alert and feeling some better. I had asked for a consultation with Dr. Marino, Game Producer because of the hypoxemia. CT of the chest showed abnormal findings of right upper lobe partially calcified mass measuring 4.5 x 2.1 with spiculated margins left upper lobe mass-like areas of consolidation measuring 1.5 x 1.8. There are areas of what appeared to be atelectasis or scarring. No definite focal infiltrate is seen. Impression was biapical spiculated mass-like densities. The appearance suggestive of pneumoconiosis or sarcoidosis. The radiologist advised comparison with previous CT and we do not have any of those, as well as PET-scan CT. Ascending aortic aneurysm measuring 4.1 x 4.2 cm. The patient seemed to be feeling better. His hemoglobin and hematocrit more or less remained about the same. BUN is now normal at 15, creatinine 1.13, E GFR 67. Blood sugar at 257. AST slightly less than yesterday at 56 from 59. Total protein and albumin remained the same. His TSH was normal at 1.987. The patient did complain of some numbness about the heel area. It is not constant. This patient was given sliding scale coverage for the hyperglycemia. A referral will be pursued to a casino runner for further diagnosis of the problems. YOLANDA
--- NOTE | 2016-02-15 11:13 | PN ---
DATE OF VISIT: 02/14/16 VITAL SIGNS: At 5:30 p.m., temperature 98.1, pulse 92, blood pressure 138/82, respiratory rate 20, oxygen saturation 95 at room air. The patient had arterial blood gases today with FIO2 21, PO2 is now 64, PCO2 38.9, pH 7.373 and oxygen saturation 92. Electrolytes are normal now. Blood sugar 263, A1C 14.2. Calcium normal and AST is now back to normal. Platelet count is slightly below normal at 134,000. LUNGS: Diminished breath sounds, but clear. HEART: Audible and regular with good tones. ABDOMEN: No remarkable tenderness. Bowel sounds are active. The CT scan of the head without contrast showed no acute intracranial abnormalities. Chronic ischemic disease of the white matter and cerebral volume loss. TB skin test was ordered today. We still do not have results of the plasma C- peptid DARLENE autoantibody and fasting insulin. The patient will be given Lantus 20 units subq at 9 p.m. and he will be continued on sliding scale coverage. He is on Sitagliptin at this time, but no Jardance. This patient should have an education from the solar sales associate with diet and also maybe decrease the amount of Morphine. He doesn't seem to be in any pain at all and he is moving well. I tried to call Dr. Luna's office, a cosmetic surgeon at the [facility] area and their office is closed today. We will try to get in touch with his office again tomorrow to make an appointment or if he decides that the patient be admitted to either [facility] to a Hospitalist if he needed further work-up for the lung abnormality. YOLANDA
--- NOTE | 2016-02-15 12:03 | ECHO2D ---
Date of Exam: 02/13/15 Ordering Physician: HOSPITALIST--GEOVANNY SIEGEL Reason for Echo: DKA, HTN, HYPERLIPIDEMIA, DM, SOB, RESPIRATORY FAILURE M-Mode Normal Adult Results LV Dimensions Normal Adult Results AoV Opening excursions >1.6 >1.6 LVEDD-base- 3.5-5.8 4.9 Ao root dimensions 2.0-3.7 3.8 LVESD-base- 3.1-4.6 L. Atrium dimensions 1.9-3.8 3.9 Post. Wall thickness 0.8-1.1 1.1 IV septum (thickness) 0.7-1.2 1.0 Post. Wall excursion 0.72-1.3 NORMAL Septal motion NORMAL Systolic motion R. Ventricular cavity 1.5-2.0 NORMAL LVEF 60% 57% Paradoxical septal wall motion NORMAL 2-D : 2-D M Mode Echocardiogram was performed using apical four chamber and left parasternal long and short axis views. Mitral, tricuspid and aortic valves appear to be normal. Contractility of the left ventricle seems to be normal, so is the cavity size. Left atrial cavity size and aortic root appear to be normal. There is no pericardial effusion. There is no thrombus noted in the left ventricular or left aortic cavity. No mitral valve prolapse noted. M-MODE: MV: NORMAL AV: NORMAL TV: NORMAL PV: CHAMBER SIZE: NORMAL WALL MOTION: NORMAL PERICARDIUM: NORMAL INTERPRETATION: 1. NORMAL 2 "D" "M" MODE ECHO [facility]
--- NOTE | 2016-02-15 13:24 | PCM.CONS ---
CONSULTING PROVIDER: Dr. GRACY NIETO ATTENDING PROVIDER: Dr. Charlotte SIEGEL DATE OF SERVICE: 02/15/16 SUBJECTIVE: This 60 year old WHITE/ M was hospitalized 02/11/16. The patient was hospitalized with blood sugar of more than 700 with hyperosmolar status. The patient's other problem also was hypoxemia which seems to be from chronic lung disease. 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 CT scan shows biapical spiculated mass-like densities consistent with pneumoconiosis or sarcoidosis. REVIEW OF SYSTEMS: CONSTITUTIONAL: No night sweats. No fatigue, malaise, lethargy. No fever or chills. HEENT: Eyes: No visual changes. No eye pain. No eye discharge. ENT: No runny nose. No epistaxis. No sinus pain. No odynophagia. No congestion. RESPIRATORY: No cough, no congestion. No hemoptysis. CARDIOVASCULAR: No angina symptoms. No CHF symptoms. No atypical chest pain for CAD. No palpitations. No shortness of breath. GASTROINTESTINAL: No abdominal pain. No nausea or vomiting. No diarrhea or constipation. No hematemesis. No hematochezia. GENITOURINARY: No urgency. No frequency. No dysuria. No hematuria. No obstructive symptoms. No discharge. No pain. No significant abnormal bleeding. MUSCULOSKELETAL: No musculoskeletal pain; no joint swelling. NEUROLOGICAL: Awake, alert, oriented to time, place and person. No headache. No neck pain. No syncope. No seizures. No dizziness. PSYCHIATRIC: Not anxious. No depression. No suicidal thoughts. No homicidal thoughts. SKIN: No rash. No lesions. No wounds. ENDOCRINE: No unexplained weight loss. No weight gain. HEMATOLOGIC/LYMPHATIC: No anemia. No purpura. No petechiae. No prolonged or excessive bleeding. No palpable lymph nodes. PHYSICAL EXAMINATION: GENERAL: The patient is awake, alert and oriented,sitting in bed in no distress. VITAL SIGNS: Temperature 98.1 F, Pulse 80, Respiratory Rate 20, BP 131/82, Pulse Ox 95% HEENT: Head normocephalic, atraumatic. Eyes: Extraocular muscles are intact. Pupils are equal, round and reactive to light and accommodation. Ears: No lesions. Nose appeared normal. Throat: No exudate or erythema. NECK: Supple. No JVD, no carotid bruit. No lymphadenopathy or thyromegaly. LUNGS: Clear to auscultation. Percussion note normal. Chest symmetrical. HEART: S1, S2, no S3. No murmurs. No cyanosis or clubbing. No ascites. Pulses: Dorsalis pedis and posterior tibial pulses +1 to +2 both sides. ABDOMEN: Soft. Non-tender. Bowel sounds active. No CVA tenderness. No mass felt. EXTREMITIES: No edema. Full range of motion of all extremities, equal. NEUROLOGIC: No focal deficit. Cranial nerves II through XII are grossly intact. No headache, no double vision or headache. SKIN: Not dry. Intact. Turgor-normal. LYMPHATIC: No palpable lymph nodes/no lymphedema. MUSCULOSKELETAL: Normal joints with no swelling. Muscle tone is normal. LAB REVIEW: 02/15/16 04:49 02/15/16 04:49 02/15/16 04:49: WBC 7.94, RBC 4.39 L, Hgb 11.8 L, Hct 36.7 L, MCV 83.6, MCH 26.9 L, MCHC 32.2, RDW Coeff of Niurka 13.2, Plt Count 135 L, Immature Gran % (Auto ) 0.5, Neut % (Auto) 68.7, Lymph % (Auto) 16.5, [place] % (Auto) 11.0 H, Eos % ( Auto) 2.8, Baso % (Auto) 0.5, Immature Gran # (Auto) 0.0, Neut # 5.5, Lymph # 1.3, [place] # 0.9, Eos # 0.2, Baso # 0.0, Sodium 135 L, Potassium 3.7, Chloride 106, Carbon Dioxide 23, Anion Gap 9.7, BUN 10, Creatinine 1.02, Estimated GFR ( MDRD) 75.00, BUN/Creatinine Ratio 9.80, Glucose 270 H, Calcium 8.3, Total Bilirubin 0.36, AST 17, ALT 34, Alkaline Phosphatase 85, Total Protein 5.7 L, Albumin 2.6 L, Globulin 3.1, Albumin/Globulin Ratio 0.84 02/14/16 11:11: Puncture Site Lrad, O2 Saturation 92.0 L, ABG pH 7.373, ABG pCO2 38.9, ABG pO2 64.0 L, ABG HCO3 22.6, ABG Total CO2 24, ABG Base Excess -3 L , Evan Test +, FiO2 % 21.0 02/14/16 04:35: ESR 28 H, Hemoglobin A1c 14.2 H, Triglycerides 260 H, Cholesterol 143, LDL Cholesterol, Calc 68, VLDL Cholesterol 52 H, HDL Cholesterol 23 L, Cholesterol/HDL Ratio 6.2 ASSESSMENT: 1. Diabetes mellitus uncontrolled with hyperosmolar status getting under control. 2. 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 Hypertension 4. Dyslipidemia RECOMMENDATIONS/PLAN: 1. Add Pravachol 20 mg p.o. daily to bring non HDL below 100. 2. Continue Hyzaar. 3. Will increase Lantus to 40 units at night. 4. Educated about diabetes mellitus and its complications. 5. Will do PFT. 6. ABGs done yesterday p02 64 which is better. 7. Dobutamine as outpatient. Plan and coordination of the patient's care discussed in the presence of Director Of Instructional Technology and Nurse. EDUCATION: Discussed with the patient diabetes mellitus and its complications. The patient voiced understanding. The patient is in agreement with the treatment plan. CONDITION: Stable SCRIBED BY: JESUS JEFFRIES Relationship Manager scribed while in presence of service performed by Dr. GRACY NIETO on 02/15/16 ([id number])
--- NOTE | 2016-02-15 15:23 | CONS ---
DATE OF CONSULTATION: 02/14/16 REASON FOR CONSULTATION: Shortness of breath and hypoxemia on admission HISTORY OF PRESENT ILLNESS: The patient is a 60 year old white male hospitalized on 02/11/16 with hyperglycemia with blood sugar of more than 700. The patient on admission had an ABG which revealed the pO2 of 52 with normal pCO2 and normal pH. The patient showed hypoxemia. The patient is non-smoker and had no evidence of CHF. BNP was 17 on admission and D-dimer was negative. REVIEW OF SYSTEMS: CONSTITUTIONAL: No night sweats. No fatigue, malaise, lethargy. No fever or chills. HEENT: Eyes: No visual changes. No eye pain. No eye discharge. ENT: No runny nose. No epistaxis. No sinus pain. No sore throat. No odynophagia. No ear pain. No congestion. RESPIRATORY: No cough, no congestion. No hemoptysis. CARDIOVASCULAR: No angina symptoms. No CHF symptoms. No atypical chest pain for CAD. No palpitations. No shortness of breath. GASTROINTESTINAL: No abdominal pain. No nausea or vomiting. No diarrhea or constipation. No hematemesis. No hematochezia. GENITOURINARY: No urgency. No frequency. No dysuria. No hematuria. No obstructive symptoms. No discharge. No pain. No significant abnormal bleeding. MUSCULOSKELETAL: No musculoskeletal pain. No joint swelling. NEUROLOGICAL: No headache. No neck pain. No syncope. No seizures. No dizziness. PSYCHIATRIC: Not anxious. No depression. No suicidal thoughts. No homicidal thoughts. SKIN: No rash. No lesions. No wounds. ENDOCRINE: No unexplained weight loss. No weight gain. HEMATOLOGIC/LYMPHATIC: No anemia. No purpura. No petechiae. No prolonged or excessive bleeding. No palpable lymph nodes. MEDICATIONS: Xanax 1mg PO daily Hydrochlorothiazide 25mg PO daily Synthroid 50mcg PO daily Metoprolol 50mg PO daily Morphine Sulfate 30mg twice a day Januvia 100mg PO daily ALLERGIES: Rofecoxib PAST MEDICAL HISTORY/PAST SURGICAL HISTORY: Hypothyroidism Hypertension Diabetes Mellitus- Recent the patient has been started on Lantus because blood sugar was noted to be more than 500 or 600 as outpatient. The patient was advised hospitalization to which the patient has declined. SOCIAL/PERSONAL/FAMILY HISTORY: The patient is and life with the and family. Non-smoker. No alcohol abuse. The patient quit smoking in 1985. 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 PHYSICAL EXAMINATION: GENERAL: The patient is oriented to time, place and person. VITAL SIGNS: temperature 99.8, pulse 96, respiratory rate 20, blood pressure 152 /83 and pulse ox 96%. HEENT: Head normocephalic, atraumatic. Eyes: Extraocular muscles are intact. Pupils are equal, round and reactive to light and accommodation. Ears: No lesions. Nose appeared normal. Throat: No exudate or erythema. NECK: Supple. No JVP, no carotid bruit. No lymphadenopathy or thyromegaly. LUNGS: Decreased breath sounds but clear to auscultation. Percussion note normal. Chest symmetrical. HEART: S1, S2, no S3. No murmurs. No cyanosis or clubbing. No ascites. Pulses: Dorsalis pedis and posterior tibial pulses +1 bilaterally. PMI not palpable. ABDOMEN: Soft. Nontender. Bowel sounds active. No CVA tenderness. No mass felt. EXTREMITIES: No edema. Full range of motion of all extremities, equal. no ulcers noted. NEUROLOGIC: No focal deficit. Cranial nerves II through XII are grossly intact. No headache, no double vision or headache. SKIN: Not dry. Intact. Turgor - normal. LYMPHATIC: No palpable lymph nodes/no lymphedema. MUSCULOSKELETAL: Normal joints with no swelling. Muscle tone is normal. LABS: hgb 12.2, hct 37, WBC 10,000 normal differential, creatinine 1, BUN 11, potassium 4 and glucose 163. As mentioned above BNP, TSH and D-dimer all negative. Estimated GFR 72cc per minute. ASSESSMENT: 1. Hypoxemia noted on admission, seems to have resolved on pulse oximetry on room air 96%. Will be an ABG today to decide about his ABG today. 2. Diabetes Mellitus, uncontrolled, now on Lantus. Education carried about about the complication of Diabetes in detail along with kidney, cardiac problems , atherosclerosis, neuropathy, etc. 3. BMI is 32. Advised to have a BMI 23 plus or minus two. Weight reducing ADA diet discussed. 4. The patient has chronic lung disease with CT scan showing Biapical spiculated mass-like densities. The appearance suggestive of pneumoconiosis or sarcoidosis. There is no prior exam then PET-CT scan is recommended. The patient also showed mild atelectasis and mild atherosclerosis which was explained to the patient. RECOMMENDATION: 1. Echocardiogram 2DM-Mode was done which showed borderline LVH, normal LV contractility and normal valves. 2. Stress echo will be performed as an outpatient has patient has family history of heart disease. The patient's father at 57 with heart disease. 3. Base line lipid profile. The patient says that his lipid profile in the past as been normal. 4. A1c goal discussed with the patient, should be between 6 to 7. 5. Advised close follow up with the primary laboratory animal caretaker. Follow the diet and instruction closely. 6. Blood goal 135/85 or under. Antihypertensive medication added. The patient is going to be on either ERB or Jaun inhibitor considering the patient's diabetic status. Will start the patient on Hyzaar which is the combination of Cozaar. Hydrochlorothiazide will be discontinue 25mg. 7. Case discussed with attending Dr. Barragan. He is planing to refer this patient to primary physician with his chronic lung disease and possibility of Pneumoconiosis. Possibility of Sarcoidosis will do citrate. 8. Will do a PFT. CONDITION: Stable TIME SPENT: More than 60 minutes. Send copy to where ever patient goes, likely [place]. [facility]
[2016-02-15] MEDS ORDERED: PRAVACHOL PO SCH (21:00)
[2016-02-15] MEDS ORDERED: LANTUS SUBCUT SCH (21:00)
[2016-02-16 05:22] LABS: BASOPHILS # (AUTO) 0.1 K/uL (0-0.2); BASOPHILS % (AUTO) 0.8 % (0.0-3.0); EOSINOPHILS # (AUTO) 0.3 K/ul (0.0-0.7); EOSINOPHILS % (AUTO) 4.2 % (0.0-7.0); HEMATOCRIT 36.5 % (42.0-52.0); HEMOGLOBIN 12.2 g/dl (14.0-18.0); IMMATURE GRANULOCYTE % (AUTO) 0.6 % (0.0-5.0); LYMPHOCYTES # (AUTO) 1.6 K/uL (0.60-3.4); LYMPHOCYTES % (AUTO) 24.2 (10.0-50.0); MEAN CORPUSCULAR HEMOGLOBIN 26.9 pg (27.0-31.0); MEAN CORPUSCULAR HGB CONC 33.4 (31.8-35.4); MEAN CORPUSCULAR VOLUME 80.4 fl (80.0-94.0); MONOCYTES # (AUTO) 0.7 K/uL (0.4-2.0); NEUTROPHILS # (AUTO) 3.9 K/ul (2.0-6.9); NEUTROPHILS % (AUTO) 59.2; PLATELET COUNT 173 10^3/uL (140-440); RED BLOOD COUNT 4.54 10^6/ul (4.70-6.10); WHITE BLOOD COUNT 6.62 K/ul (4.2-10.2)
[2016-02-16 05:55] LABS: ALBUMIN 2.8 g/dL (3.4-5.0); ALBUMIN/GLOBULIN RATIO 0.88; ANION GAP 10.5; BILIRUBIN,TOTAL 0.4 mg/dL (0.00-1.20); BUN/CREATININE RATIO 10.89; CALCIUM 8.9 mg/dL (8.2-10.2); CREATININE 1.01 mg/dL (0.60-1.10); POTASSIUM 3.5 mmol/L (3.5-5.1)
[2016-02-16] MEDS: SYNTHROID PO SCH (06:06)
[2016-02-16] MEDS: HUMULIN R SUBCUT PRN ×2 (06:07→13:24)
[2016-02-16 09:27] LABS: GAD AUTOANTIBODY < 5.0 U/mL (0.0-5.0)
[2016-02-16] MEDS: JANUVIA PO SCH (09:39)
[2016-02-16] MEDS: MORPHINE SULFATE TAB PO SCH (09:39)
[2016-02-16] MEDS: HYZAAR 50-12.5 MG TAB PO SCH (09:39)
[2016-02-16] MEDS: LOPRESSOR PO SCH (09:40)
[2016-02-16] MEDS: LOVENOX SUBCUT SCH (09:40)
[2016-02-16] MEDS: XANAX PO SCH (09:41)
[2016-02-16 18:47] VITALS: BP 160/96; TEMP 97.9
[2016-02-16] MEDS ORDERED: LANTUS SUBCUT STA (19:49)
[2016-02-16] MEDS ORDERED: LANTUS SUBCUT ONE (19:54)
--- NOTE | 2016-02-17 13:09 | CONS ---
DATE OF SERVICE: 02/16/16 CONSULT FOLLOWUP SUBJECTIVE: The patient is a 60 year old white male hospitalized with hyperosmolar status. The patient's blood sugar has been brought under control. He is on Lantus 40mg SUBCUT daily. The patient has already been started on Statin. The patient is feeling a lot better. REVIEW OF SYSTEMS: CONSTITUTIONAL: No night sweats. No fatigue, malaise, lethargy. No fever or chills. HEENT: Eyes: No visual changes. No eye pain. No eye discharge. ENT: No runny nose. No epistaxis. No sinus pain. No sore throat. No odynophagia. No ear pain. No congestion. RESPIRATORY: No cough, no congestion. No hemoptysis. CARDIOVASCULAR: No angina symptoms. No CHF symptoms. No atypical chest pain for CAD. No palpitations. No shortness of breath. GASTROINTESTINAL: No abdominal pain. No nausea or vomiting. No diarrhea or constipation. No hematemesis. No hematochezia. GENITOURINARY: No urgency. No frequency. No dysuria. No hematuria. No obstructive symptoms. No discharge. No pain. No significant abnormal bleeding. MUSCULOSKELETAL: No musculoskeletal pain. No joint swelling. No arthritis. NEUROLOGICAL: No headache. No neck pain. No syncope. No seizures. No dizziness. PSYCHIATRIC: Not anxious. No depression. No suicidal thoughts. No homicidal thoughts. SKIN: No rash. No lesions. No wounds. ENDOCRINE: No unexplained weight loss. No weight gain. HEMATOLOGIC/LYMPHATIC: No anemia. No purpura. No petechiae. No prolonged or excessive bleeding. No palpable lymph nodes. PHYSICAL EXAMINATION: GENERAL: The patient is oriented to time, place and person. VITAL SIGNS: Temperature 98.3, pulse 82, respiratory rate 16, blood pressure 150 /92 and pulse ox 95%. HEENT: Head normocephalic, atraumatic. Eyes: Extraocular muscles are intact. Pupils are equal, round and reactive to light and accommodation. Ears: No lesions. Nose appeared normal. Throat: No exudate or erythema. NECK: Supple. No JVD, no carotid bruit. No lymphadenopathy or thyromegaly. LUNGS: Decreased breath sounds but clear to auscultation. Percussion note normal. Chest symmetrical. HEART: S1, S2, no S3. No murmurs. No cyanosis or clubbing. No ascites. Pulses: Dorsalis pedis and posterior tibial pulses +1 to +2 both sides. ABDOMEN: Soft. Nontender. Bowel sounds active. No CVA tenderness. No mass felt. EXTREMITIES: No edema. Full range of motion of all extremities, equal. NEUROLOGIC: No focal deficit. Cranial nerves II through XII are grossly intact. No headache, no double vision or headache. SKIN: Not dry. Intact. Turgor - normal. LYMPHATIC: No palpable lymph nodes/no lymphedema. MUSCULOSKELETAL: Normal joints with no swelling. Muscle tone is normal. LABS: Hgb 12.2, hct 36, WBC 6,600 normal differential, creatinine 1, BUN 11, potassium 3.5 and BNP 17. ASSESSMENT: 1. Hypoxemia, likely from Silicosis or Pneumoconiosis, think patient has sarcoid. 2. Diabetes Mellitus, uncontrolled now getting under control with Lantus. Patient education carried out about complications of diabetes in detail along with diet. 3. Hypertension 4. Dyslipidemia 5. Obesity. RECOMMENDATIONS: 1. Diet for weight loss discussed. The patient has also been started on Statin , Angiotensin and receptor ashish. 2. The patient will undergo stress echo as an outpatient. CONDITION: Stable. MTDD
--- NOTE | 2016-02-18 13:33 | PN ---
Consultation was done and the patient was seen several times. Last time the patient was seen was on 02/16/16. The patient was at least seen three or four times in the hospital. Hospitalist Dr. Barragan. YOLANDA
--- NOTE | 2016-02-28 08:58 | CONS ---
DATE OF CONSULTATION: 02/14/16 REASON FOR CONSULTATION: Hypoxemia HISTORY OF PRESENT ILLNESS: Admitted due to glucose 773. Consult due to hypoxemia on ABG's on admission and the following day. REVIEW OF SYSTEMS: CONSTITUTIONAL: No night sweats. Fatigue and weakness. No fever or chills. HEENT: Eyes: No visual changes. No eye pain. No eye discharge. ENT: No runny nose. No epistaxis. No sinus pain. No sore throat. No odynophagia. No ear pain. No congestion. RESPIRATORY: No cough, no congestion. No hemoptysis. CARDIOVASCULAR: No angina symptoms. No CHF symptoms. No atypical chest pain for CAD. No palpitations. No shortness of breath. GASTROINTESTINAL: Abdominal pain. No nausea or vomiting. No diarrhea or constipation. No hematemesis. No hematochezia. Increased thirst GENITOURINARY: No urgency. Frequency, polyuria. No dysuria. No hematuria. No obstructive symptoms. No discharge. No pain. No significant abnormal bleeding. MUSCULOSKELETAL: Chronic back pain. No joint swelling. NEUROLOGICAL: No headache. No neck pain. No syncope. No seizures. No dizziness. Blurred vision. PSYCHIATRIC: Anxious. No depression. No suicidal thoughts. No homicidal thoughts. SKIN: No rash. No lesions. No wounds. Dry Mucosa membrane on admission. ENDOCRINE: No unexplained weight loss. No weight gain. HEMATOLOGIC/LYMPHATIC: No anemia. No purpura. No petechiae. No prolonged or excessive bleeding. No palpable lymph nodes. MEDICATIONS: Xanax Jardiance HCTZ Lantus Synthroid Metoprolol Morphine sulfate Januvia ALLERGIES: Vioxx PAST MEDICAL HISTORY/PAST SURGICAL HISTORY: Diabetes X1 year Lumbar surgery X4 Hypothyroid Hypertension Cholecystectomy Osteoarthritis Anxiety GERD Walks on treadmill for one mile tries to daily-slow pace. SOCIAL/PERSONAL/FAMILY HISTORY: Smoking history yes but stopped. No alcohol use. . Previous work: [employer] in [place]. PHYSICAL EXAMINATION: GENERAL: The patient is oriented x3. VITAL SIGNS: Pulse 96, blood pressure 130/84, temperature 98.6 and pulse ox 93% on room air. HEENT: Head normocephalic, atraumatic. Eyes: Extraocular muscles are intact. Pupils are equal, round and reactive to light and accommodation. Ears: No lesions. Nose appeared normal. Throat: No exudate or erythema. NECK: Supple. No JVD, no carotid bruit. No lymphadenopathy or thyromegaly. LUNGS: Clear to auscultation. Percussion note normal. Chest symmetrical. HEART: S1, S2, no S3. No murmurs. No cyanosis or clubbing. No ascites. Pulses: Dorsalis pedis and posterior tibial pulses +1. ABDOMEN: Soft. Nontender. Bowel sounds active. No CVA tenderness. No mass felt. EXTREMITIES: No edema. Full range of motion of all extremities, equal. NEUROLOGIC: No focal deficit. Cranial nerves II through XII are grossly intact. No headache, no double vision or headache. SKIN: Not dry. Intact. Turgor - normal. LYMPHATIC: No palpable lymph nodes/no lymphedema. MUSCULOSKELETAL: Normal joints with no swelling. Muscle tone is normal. LABS: CT of abdomen and pelvis no acute findings. Chest X-ray not acute, heart size normal. CBC within normal limits. ABG's on room air SAT 89%, pO2 55, pH 7.436, HCO3 29.9 and total CO2 31. Sodium 128, potassium 3.5, chloride 86, BUN 25, creatinine 2.01, glucose 773 and acetone small. ASSESSMENT: 1. Diabetes, type 2 uncontrolled 2. Respiratory Failure 3. Hypertension 4. COPD/ Silicosis 5. Obesity PLAN: 1. Echocardiogram 2. ABG's on room air 3. Stop HCTZ 4. Add Hyzaar 50/12.5mg daily 5. Lipid profile 6. A1c 7. Urine microalbumin 8. Outpatient, PFT. MTDD
--- NOTE | 2016-03-23 10:44 | DS ---
PATIENT IDENTIFICATION: 60 year old male known diabetic presented to the emergency room, ambulatory, claiming that he did run out of his test strips for blood sugar and the blood sugar last night was very high. No numbers were given. His mouth is dry and he tires easily. His blood sugar in the emergency room was 776. Blood gases showed moderate hypoxemia, but no acidosis. Chest x- ray showed no acute cardiopulmonary process. The patient was admitted because of markedly elevated blood sugar and the emergency room physician felt that he an early DKA. HOSPITAL COURSE: The patient was given sodium chloride at 100 cc per hour and 15 units of Humulin R. The patient was given Humulin R 5 units per hour IV. Blood sugar was monitored closely. His initial arterial blood gases with FIO2 21, PO2 55, O2 saturation 89, pH 7.436, PCO2 44, bicarbonate 29.9, total CO2 31 , base excess 6. Repeat arterial blood gases the next day showed more or less the same results. Arterial blood gases done four days later showed improvement with a PO2 of 64, PCO2 38.9, pH 7.373, oxygen saturation 92, FIO2 21. The blood sugar came down abruptly on the first hospital day, but then slowly. On 02/13/16, the blood sugar was 257 and 02/14/16 it was 263 with an A1C of 14.2. Insulin level markedly elevated at 134.5. C-Peptide level is 2.1. The patient continued to improve and his vital signs remained stable. His temperature was normal, except on two occasions, which was low grade at 99.4. This patient on 02/12/16 was feeling much better. Oxygen saturation on 2 Liters was 92. Respiratory rate was 18. The patient on the day prior, 2015, remained alert and responsive and oriented, but had poor recollection of recent events. He denies any headaches or visual disturbances and no chest pain. CT scan of the chest showed a calcified mass measuring 4.5 by 2.1 cm with spiculated margins left upper lobe. The E GFR was getting better at 67. The patient's imaging done during this hospitalization consisted CT scan of the head without contrast with no acute intracranial abnormalities, chronic ischemic disease of the white matter and cerebral volume loss. CT scan of the chest without contrast showed spiculated mass, biapical and repeat CT scan was recommended. Chest x-ray showed no acute cardiopulmonary processes. No nodules identified. CT scan of the abdomen and pelvis showed no acute abnormalities noted. Showing status post cholecystectomy and no signs of urinary or bowel obstruction and normal appendix. No acute inflammatory processes. Labs showed essentially normal CBC and more or less remained normal throughout his hospital stay. Arterial blood gases improved on the third determination. Electrolytes with slight abnormality, but no clinical significance. Renal panel a decreased E GFR on admission, but that has returned to normal. Highest was 76. Fasting blood sugar was gradually decreasing towards normal and the A1C was 14.2. A total protein and Albumin is below normal. The AST had shown slight elevation at 56 and 59 with a normal AST. Lipid panel was abnormal with triglyceride of 260, cholesterol of 143, LDL 68, VLDL 52, HDL 23. Random microalbumin 14.6. The patient's appetite had remained well and he was eating most of the meals most of the time. The patient at the time of discharge is alert, ambulatory with movement of all extremities. No facial weakness. LUNGS: Breath sounds are heard in both sides, diminished with no rales and no wheezing. HEART: Audible and regular with good tones and no murmurs. ABDOMEN: Protuberant, soft. No muscular guarding. Bowel sounds are active. LOWER EXTREMITIES: No tenderness in the calf muscles. This patient did receive Lovenox prophylactically. PLAN: 1. The patient is discharged and was described Humalog quick pen for a sliding scale. 2. Losartan Hydrochlorothiazide 50/12.5 mg one daily. 3. Pravastatin Sodium 20 mg daily at bedtime. 4. Resume previous medications of Alprazolam 1 mg daily, Levothyroxine 50 mcg daily, Metoprolol Tartrate 50 mg daily, Morphine Sulfate 30 mg twice a day, Januvia 100 mg daily. 5. The patient is advised to stop taking Jardiance. 6. An appointment was made with a Pick Up Operator, because of the pulmonary nodule, in [place]. The patient was given the time, as well as the address and the day. 7. He also was advised to see Jennifer Dumont, his provider, this coming Sunday. 8. Accucheck before breakfast, before lunch and before supper with Humalog quick pen and provided with the amount of Insulin to be given with the blood sugar readings. The patient had shown good understanding. FINAL DIAGNOSES: 1. DIABETES MELLITUS, PROBABLY TYPE II, UNCONTROLLED 2. MODERATE HYPOXEMIA, IMPROVED 3. HYPERTENSION, CONTROLLED 4. HISTORY OF CHRONIC LUMBAR PAIN TREATED BY HER PRIMARY PROVIDER 5. HYPOTHYROIDISM, REPLACED 6. ELEVATED BMI 7. PERIPHERAL ARTERIAL DISEASE, ABSENT ANTERIOR TIBIALS 8. HISTORY OF TIA, THE HISTORY IS NOT CLEAR PROGNOSIS: Guarded. MTDD
--- NOTE | 2016-03-23 10:48 | PN ---
DATE OF VISIT: 02/15/2016 The patient, today at 6 o'clock in the afternoon, is alert and oriented. VITAL SIGNS: Temperature of 98.2, pulse 88, blood pressure slightly elevated 166/94. Blood pressure was lower some four hours ago. Respiratory rate 20, oxygen saturation 94 at room. LUNGS: Clear to auscultation. HEART: Normal sinus rhythm. ABDOMEN: Nontender. CONDITION: Improved and stable. MTDD
== END 2016-02-16 20:16 | disposition home or self-care (01) | DRG 637 ==
LOC: ED 19:09 → SCU 02-11 01:05 → MEDSURG A 02-16 00:25
PROVIDERS: ADMIT General Practice; ATTEND General Practice
DX: E11.65 Type 2 diabetes mellitus with hyperglycemia (principal); I67.82 Cerebral ischemia; R09.02 Hypoxemia; I10 Essential (primary) hypertension; J62.8 Pneumoconiosis due to other dust containing silica; J44.9 Chronic obstructive pulmonary disease, unspecified; R35.8 Other polyuria; I71.2 Thoracic aortic aneurysm, without rupture; E66.9 Obesity, unspecified; E89.0 Postprocedural hypothyroidism; I73.9 Peripheral vascular disease, unspecified; G89.29 Other chronic pain; M54.5 Low back pain; R63.1 Polydipsia; Z86.73 Personal history of transient ischemic attack (TIA), and cerebral infarction without residual deficits; R10.9 Unspecified abdominal pain; Z68.32 Body mass index [BMI] 32.0-32.9, adult; Z79.84 Long term (current) use of oral hypoglycemic drugs; Z79.899 Other long term (current) drug therapy; Z90.49 Acquired absence of other specified parts of digestive tract; E13.10 Other specified diabetes mellitus with ketoacidosis without coma
CPT/HCPCS: 36415; 80053; 80061; 81001; 82009; 82043; 82550; 82803; 82962; 83036; 83519; 83525; 83880; 84443; 84484; 84681; 85025; 85379; 85651; 87081; 93005; 93010; 96360; 96361; 96372; 97802; 99222; 99232; 99239; 99284

== ENCOUNTER 2016-02-21 06:28 | Outpatient (CLI) ==
[2016-02-21] MEDS ORDERED: DOBUTAMINE 250 ML IV ONE (07:11)
[2016-02-21] MEDS ORDERED: ATROPINE SULFATE PFS ONE (07:11)
--- NOTE | 2016-02-23 11:55 | DOBSTECHO ---
Ordering Physician: GRACY NIETO Date of Test: 02/21/16 Reason for Examination: SOB, HTN, DM2 Current Medications: JANUVIA, PRAVACHOL, METOPROLOL, LOSARTAN, SYNTHROID, HUMALOG, ALPRAZOLAM Height: 69" Weight: 214 LBS Target Heart Rate: 137/162 ST Segment Stage Time HR/BPM BP MMHG Rhythm +/- Up Down Comments/Symptoms Control Sitting 60 102/74 SR X NONE Dobutamine 250mg/D5W 5cmg/KG/mn 10cmg/KG/mn 3" 70 118/70 SR X NONE 15cmg/KG/mn 2" 77 144/76 SR X NONE 20cmg/KG/mn 2" 83 146/66 SR X NONE 25cmg/KG/mn 2" 93 156/76 SR X NONE 30cmg/KG/mn 2" 102 160/66 SR X .25 MG ATROPINE 35cmg/KG/mn 1:10 114 156/60 SR X NONE 40cmg/KG/mn Time: 4" HR/BPM B/P-MMHG Time: 8" HR/BPM B/P Time: HR B/P Recovery 87 124/66 Recovery 72 Recovery Total Time: 12:10 Maximum Heart Rate Reached: 114 Interpretation: 1. NO EVIDENCE OF ISCHEMIA BY ST-T WAVE FROM HEART RATE 60/MINUTE AT REST TO 114 /MINUTE WITH DOBUTAMINE INFUSION AND .25 MG IV ATROPINE 2. NORMAL LEFT VENTRICULAR CONTRACTILITY--RESTING AND WITH DOBUTAMINE INFUSION 3. NO CHEST PAIN OR CHEST DISCOMFORT NORMAL LEFT VENTRICULAR CONTRACTILITY RESTING AND WITH DOBUTAMINE INFUSION BY ECHO MTDD
--- NOTE | 2016-02-23 12:01 | ECHOSTRESS ---
Date of Exam: 02/21/16 Ordering Physician: GRACY NIETO Reason for Echo: SOB, HTN, DOBUTAMINE STRESS- NO ISCHEMIA M-Mode Normal Adult Results LV Dimensions Normal Adult Results AoV Opening excursions >1.6 LVEDD-base- 3.5-5.8 Ao root dimensions 2.0-3.7 LVESD-base- 3.1-4.6 L. Atrium dimensions 1.9-3.8 Post. Wall thickness 0.8-1.1 IV septum (thickness) 0.7-1.2 Post. Wall excursion 0.72-1.3 Septal motion Systolic motion R. Ventricular cavity 1.5-2.0 LVEF 60% Paradoxical septal wall motion 2-D: NORMAL LEFT VENTRICULAR CONTRACTILITY RESTING AND WITH DOBUTAMINE INFUSION M-MODE: MV: AV: TV: PV: CHAMBER SIZE: WALL MOTION: NORMAL LEFT VENTRICULAR CONTRACTILITY RESTING AND WITH DOBUTAMINE INFUSION PERICARDIUM: INTERPRETATION: 1. NORMAL LEFT VENTRICULAR CONTRACTILITY RESTING AND WITH DOBUTAMINE INFUSION MTDD
== END 2016-02-21 06:29 | disposition home or self-care (01) ==
LOC: CAR 06:28
PROVIDERS: ATTEND Internal Medicine
DX: R06.02 Shortness of breath (principal); I10 Essential (primary) hypertension

== ENCOUNTER 2016-03-09 09:28 | Outpatient (CLI) | payer OTHER ==
[2016-03-09 11:01] VITALS: BMI 31.6
== END 2016-03-09 09:29 | disposition home or self-care (01) ==
LOC: DIETCN 09:28
PROVIDERS: ATTEND Nurse Practitioner Family
DX: E11.9 Type 2 diabetes mellitus without complications (principal)
CPT/HCPCS: 97802

== ENCOUNTER 2017-12-03 08:08 | Outpatient (CLI) | payer OTHER ==
--- NOTE | 2017-12-03 08:57 | US ---
EXAM: RENAL ULTRASOUND, BILATERAL HISTORY: Chronic kidney disease FINDINGS: Ultrasound renal, bilateral. Tabares-scale ultrasound and color Doppler imaging was performe d. The right kidney measures 10.6 x 4.8 x 4.4 centimeters. The left kidney measures 10.2 x 5.4 x 5.4 centimeters. General renal cortical volume is grossly within normal limits. The renal parenchyma is slightly echo genic bilaterally which can be consistent with chronic medical renal disease. Possible tiny calcific ation within the left kidney which could represent a calculus or parenchymal calcification. No hydro nephrosis. The urinary bladder was poorly distended although appears to have mild circumferential wall thickenin g. IMPRESSION: 1. Appearance of the renal parenchyma is echogenic which can be consistent with the patient's histor y of chronic kidney disease. Possible small left renal calculus. No hydronephrosis. 2. Probable least mild urinary bladder wall thickening. Consider cystitis or chronic partial outlet obstruction.
== END 2017-12-03 08:09 | disposition home or self-care (01) ==
LOC: RAD 08:08
PROVIDERS: ATTEND Internal Medicine Nephrology
DX: N18.3 Chronic kidney disease, stage 3 (moderate) (principal)